=== PATIENT | female | born 1955 | race Caucasian/White ===

== ENCOUNTER → 2016-06-18 | Outpatient (CLI) | payer BC, OTHER ==
[~2016-06-18] MED LIST: AMPH10CA3 PO; BUPR-79 PO; CITA20TA9 PO; FLV1 PO; MULTTAB58 PO
--- NOTE | 2016-06-18 13:49 | DIAGNOSTIC IMAGING REPORT ---
RIGHT WRIST MIN 3 VIEWS ROUTINE CLINICAL HISTORY: Persistent right wrist pain following fall. COMPARISON: Right wrist radiographs May 30, 2016. FINDINGS: There has been interval development of a transverse band of sclerosis within the distal metaphysis of the right radius suggestive of a healing nondisplaced fracture. The fracture is not evident on prior exams. Carpal bones are intact. Mild degenerative changes are noted at multiple articulations of the right wrist. IMPRESSION: Interval development of a transverse band of sclerosis within the metaphysis of the right radius consistent with a healing nondisplaced fracture. Electronically signed by: Mike Edmondson M.D. 06/18/2016 1:47 PM Dictated Date/Time: 06/18/2016 1:45 PM
== END | disposition home or self-care (01) ==
LOC: C.RDSM 12:10
PROVIDERS: ATTEND Family Medicine
DX: Z87.81 Personal history of (healed) traumatic fracture (principal)

== ENCOUNTER → 2016-07-20 | Outpatient (CLI) | payer BC, OTHER ==
--- NOTE | 2016-07-20 10:16 | DIAGNOSTIC IMAGING REPORT ---
RIGHT WRIST 3 VIEWS CLINICAL HISTORY: Healing fracture. FINDINGS: 3 views of the right wrist are compared to study dated 06/18/2016. The skeletal structures are osteopenic. There is only a faint residual band of sclerosis at the site of the healing distal radial fracture. Alignment is unchanged. No acute fracture is seen. Minimal arthritic change is present the first carpometacarpal articulation. Overlying soft tissue edema has almost completely resolved. IMPRESSION: There is only a faint persistent band of sclerosis in the distal radial metaphysis at the site of the healing fracture. Electronically signed by: Rishi Cruz M.D. 07/20/2016 10:15 AM Dictated Date/Time: 07/20/2016 10:14 AM
== END | disposition home or self-care (01) ==
LOC: C.RDSM 08:00
PROVIDERS: ATTEND Family Medicine
DX: S62.101D Fracture of unspecified carpal bone, right wrist, subsequent encounter for fracture with routine healing (principal); X58.XXXD Exposure to other specified factors, subsequent encounter

== ENCOUNTER → 2016-08-06 | Outpatient (CLI) | payer BC ==
[2016-08-06 11:08] LABS: BASO ABS # 0.04 K/uL (0-0.2); COMPLETE YES; EOS % 2.4 %; HEMATOCRIT 41.1 % (37-47); LYMPH % 33.9 %; LYMPH ABS # 1.42 K/uL (1.2-3.4); MEAN CELL VOLUME 86.5 fL (80-100); MEAN CORPUSCULAR HEMOGLOBIN 29.7 pg (25-34); MEAN CORPUSCULAR HGB CONC 34.3 g/dl (32-36); MONO % 12.9 %; NEUT % 49.8 %; PLATELET COUNT 298 K/uL (130-400); RED BLOOD COUNT 4.75 M/uL (4.2-5.4); WHITE BLOOD COUNT 4.19 K/uL (4.8-10.8)
[2016-08-06 11:59] LABS: ESTIMATED AVERAGE GLUCOSE 114 mg/dl; HA1C FLAG Normal (Normal)
[2016-08-06 12:05] LABS: BLOOD UREA NITROGEN 14 mg/dl (7-18); BUN/CREATININE RATIO 15.5 (10-20); CALCIUM 9.2 mg/dl (8.5-10.1); CARBON DIOXIDE 29 mmol/L (21-32); CHLORIDE 106 mmol/L (98-107); CREATININE 0.87 mg/dl (0.60-1.20); GLUCOSE 94 mg/dl (70-99); POTASSIUM 4.2 mmol/L (3.5-5.1); SODIUM 142 mmol/L (136-145)
[2016-08-06 12:16] LABS: CHOLESTEROL 261 mg/dl (0-200); CHOLESTEROL/HDL RATIO 4.7; HDL CHOLESTEROL 55 mg/dl; LDL CHOLESTEROL CALCULATED 179 mg/dl; TRIGLYCERIDES 134 mg/dl (0-150); VERY LOW DENSITY LIPOPROT CALC 27 mg/dl
== END | disposition home or self-care (01) ==
LOC: C.LAB 09:52
PROVIDERS: ATTEND Internal Medicine Geriatric Medicine
DX: Z86.000 Personal history of in-situ neoplasm of breast (principal); F32.9 Major depressive disorder, single episode, unspecified; E78.5 Hyperlipidemia, unspecified; R73.9 Hyperglycemia, unspecified; G47.33 Obstructive sleep apnea (adult) (pediatric)

== ENCOUNTER → 2016-08-27 | Outpatient (CLI) | payer BC, OTHER | END | disposition home or self-care (01) | LOC: C.MAMM 11:22 | PROVIDERS: ATTEND Internal Medicine Geriatric Medicine | DX: S52.90XA Unspecified fracture of unspecified forearm, initial encounter for closed fracture (principal); X58.XXXA Exposure to other specified factors, initial encounter; M81.0 Age-related osteoporosis without current pathological fracture; M85.851 Other specified disorders of bone density and structure, right thigh; M85.852 Other specified disorders of bone density and structure, left thigh ==

== ENCOUNTER → 2016-11-30 | Outpatient (CLI) | payer BC | LOC: C.PAPS 15:36 | PROVIDERS: ATTEND Obstetrics & Gynecology | DX: Z01.419 Encounter for gynecological examination (general) (routine) without abnormal findings (principal) ==